=== PATIENT | male | born 1955 | race Caucasian/White ===

== ENCOUNTER 2018-11-29 06:24 | Day surgery (SDC) | payer BC ==
[2018-11-29] MEDS: TROPICAMIDE 1% 15 ML OPH OPER (07:21)
[2018-11-29] MEDS: CYCLOPENTOLATE/PHENYLEPH 2 ML OPH OPER (07:21)
[2018-11-29] MEDS: DICLOFENAC 0.1% 2.5 ML OPH OPER (07:21)
[2018-11-29] MEDS: SOD CHLORIDE 0.9% 1,000 ML IV (07:22)
[2018-11-29] MEDS: MOXIFLOXACIN 0.5% 3 ML OPH OPER (07:22)
[2018-11-29] MEDS ORDERED: HYDROmorphONE 1 MG/5 ML IV SYRINGE IV (08:00)
[2018-11-29] MEDS ORDERED: ONDANSETRON 4 MG INJ ×2 (08:00)
[2018-11-29] MEDS ORDERED: LABETALOL HCL 20MG INJ IV (08:00)
[2018-11-29] MEDS ORDERED: METOCLOPRAMIDE 10 MG INJ ×2 (08:00)
[2018-11-29] MEDS ORDERED: PROPOFOL 20 ML (08:00)
[2018-11-29] MEDS ORDERED: MIDAZOLAM 1 MG/ML 2 ML INJ (08:00)
[2018-11-29] MEDS ORDERED: hydrALAzine 20 MG INJ IV (08:00)
[2018-11-29] MEDS ORDERED: FENTAnyl 50 MCG/ML VIAL IV (08:00)
[2018-11-29] MEDS ORDERED: ONDANSETRON 4 MG INJ IV (08:00)
[2018-11-29] MEDS ORDERED: EPHEDrine 25 MG/5 ML SYG IV (08:00)
[2018-11-29] MEDS ORDERED: EPINEPHrine 1 MG INJ (08:18)
[2018-11-29] MEDS: CARBACHOL 0.01% 1.5 ML OPH INJ (09:07)
[2018-11-29] MEDS: GENTAMICIN 80 MG INJ (09:08)
[2018-11-29] MEDS: LIDOCAINE 4% (MPF) 5 ML INJ (09:08)
[2018-11-29] MEDS: DEXAMETHASONE 4 MG/ML 1 ML INJ (09:08)
[2018-11-29] MEDS: TETRACAINE 0.5% 4 ML OPH (09:08)
[2018-11-29] MEDS: NA HYALURONATE/CHONDROITIN 0.5 ML SYG OP (09:09)
[2018-11-29] MEDS: OXYCODONE/ACETAMINOPHEN (5/325) TAB PO (10:04)
== END 2018-11-29 11:41 | disposition home or self-care (01) ==
LOC: SDS 06:24
DX: H25.042 Posterior subcapsular polar age-related cataract, left eye (principal); I10 Essential (primary) hypertension; E11.9 Type 2 diabetes mellitus without complications; Z79.4 Long term (current) use of insulin; Z79.84 Long term (current) use of oral hypoglycemic drugs; F32.9 Major depressive disorder, single episode, unspecified
CPT/HCPCS: 66984; 82962

== ENCOUNTER 2019-02-15 06:33 | Day surgery (SDC) | payer BC ==
[2019-02-15] MEDS ORDERED: LIDOCAINE 4% (MPF) 5 ML INJ (06:43)
[2019-02-15] MEDS ORDERED: DEXAMETHASONE 4 MG/ML 1 ML INJ (06:43)
[2019-02-15] MEDS ORDERED: GENTAMICIN 80 MG INJ (06:43)
[2019-02-15] MEDS ORDERED: CEFAZOLIN 1 GM INJ (06:43)
[2019-02-15] MEDS ORDERED: CARBACHOL 0.01% 1.5 ML OPH INJ (06:43)
[2019-02-15] MEDS ORDERED: EPINEPHrine 1 MG INJ ×2 (06:44)
[2019-02-15] MEDS: TROPICAMIDE 1% 15 ML OPH OPER (07:22)
[2019-02-15] MEDS: DICLOFENAC 0.1% 2.5 ML OPH OPER (07:23)
[2019-02-15] MEDS: MOXIFLOXACIN 0.5% 3 ML OPH OPER (07:23)
[2019-02-15] MEDS: CYCLOPENTOLATE/PHENYLEPH 2 ML OPH OPER (07:23)
[2019-02-15] MEDS: SOD CHLORIDE 0.9% 1,000 ML IV (07:24)
[2019-02-15] MEDS: CARBACHOL 0.01% 1.5 ML OPH INJ RIGHT EYE (08:25)
[2019-02-15] MEDS: LIDOCAINE 4% (MPF) 5 ML INJ INJ (08:25)
[2019-02-15] MEDS: DEXAMETHASONE 4 MG/ML 1 ML INJ INJ (08:25)
[2019-02-15] MEDS: CEFAZOLIN 1 GM INJ INJ (08:25)
[2019-02-15] MEDS: LIDOCAINE 1% (MPF) 5 ML VIAL INJ (08:25)
[2019-02-15] MEDS ORDERED: PROPOFOL 20 ML (08:32)
[2019-02-15] MEDS ORDERED: LIDOCAINE 2% (SDV) 5 ML INJ (09:15)
[2019-02-15] MEDS ORDERED: HYDROmorphONE 1 MG/5 ML IV SYRINGE IV ×3 (09:27→09:30)
[2019-02-15] MEDS ORDERED: ALBUTEROL 0.083% (NEB) 2.5 MG/3 ML AMP HHN (09:30)
[2019-02-15] MEDS ORDERED: hydrALAzine 20 MG INJ IV (09:30)
[2019-02-15] MEDS ORDERED: OXYCODONE/ACETAMINOPHEN (5/325) TAB PO (09:30)
[2019-02-15] MEDS ORDERED: EPHEDrine 25 MG/5 ML SYG IV (09:30)
[2019-02-15] MEDS ORDERED: MEPERIDINE 25 MG INJ IV (09:30)
[2019-02-15] MEDS ORDERED: LABETALOL HCL 20MG INJ IV (09:30)
[2019-02-15] MEDS ORDERED: DIPHENHYDRAMINE 50 MG INJ IV (09:30)
[2019-02-15] MEDS ORDERED: KETOROLAC 30 MG INJ IV (09:30)
[2019-02-15] MEDS ORDERED: ONDANSETRON 4 MG INJ IV (09:30)
[2019-02-15] MEDS ORDERED: FENTAnyl 50 MCG/ML VIAL IV ×3 (09:30)
[2019-02-15] MEDS: HYDROmorphONE 1 MG/5 ML IV SYRINGE IV (09:47)
[2019-02-15] MEDS: OXYCODONE/ACETAMINOPHEN (5/325) TAB PO (10:22)
== END 2019-02-15 10:55 | disposition home or self-care (01) ==
LOC: SDS 06:33
DX: H25.11 Age-related nuclear cataract, right eye (principal); E11.9 Type 2 diabetes mellitus without complications; I10 Essential (primary) hypertension; Z79.82 Long term (current) use of aspirin; Z79.84 Long term (current) use of oral hypoglycemic drugs; Z79.4 Long term (current) use of insulin
CPT/HCPCS: 66984; 82962